=== PATIENT | female | born 1975 | race Caucasian/White ===

== ENCOUNTER 2022-12-05 10:40 | Outpatient (CLI) | payer OTHER ==
--- NOTE | 2022-12-06 15:26 | Mammography Report ---
UNILATERAL LEFT DIGITAL DIAGNOSTIC MAMMOGRAM 3D/2D: 12/05/2022 CLINICAL: Patient returns for a 6 month follow up of the left breast. Comparison is made to exams dated: 05/16/2022 mammogram, 01/27/2021 mammogram, 01/08/2021 mammogram, 09/05 mammogram - [facility], 07/20/2018 mammogram - [facility], and 05/16/2022 ult rasound - [facility]. The left breast is heterogeneously dense, which may obscure small masses (category c / 51-75% glandul ar tissue). There is an asymmetry in the left breast anterior depth central to the nipple seen on the craniocauda l view only. This is less prominent. There also is an asymmetry in the left breast middle depth lateral region seen on the craniocaudal vi ew only. This is less prominent. No other significant masses or calcifications are seen in the breast. IMPRESSION: INCOMPLETE: NEEDS ADDITIONAL IMAGING EVALUATION The asymmetry in the left breast anterior depth central to the nipple seen on the craniocaudal view o nly resembles a cyst and is indeterminate. -A targeted ultrasound is recommended and will immediately follow. The asymmetry in the left breast middle depth lateral region seen on the craniocaudal view only resem bles fibroglandular tissue and is probably benign. Based on the Tyrer Cuzick model (a risk assessment model) the patients lifetime risk is 15.5% and he r 10 year risk is 3.0%. According to the ACR, ACS, and NCCN guidelines, an annual breast MRI exam emilia ng with mammogram is recommended if the patients lifetime risk is 20% or greater. This exam was interpreted at Station ID: [id number]. NOTE: For mammograms, a report in lay terms will be sent to the patient. Approximately 15% of breast malignancies will not be visualized mammographically. In the management of a palpable breast mass, a negative mammogram must not discourage biopsy of a clinically suspicious lesion. Electronically Signed By: Kory Baum M.D. [facility] [place]/:12/05/2022 11:24:17 ACR BI-RADS Category 0: Incomplete 3340F PARENCHYMAL PATTERN: (D) - The breast(s) demonstrate(s) heterogeneously dense fibroglandular jarred boudreaux. BI-RADS CATEGORY: (0) - 0 Ultrasound [id number] Immediate follow-up LATERALITY: (B)
--- NOTE | 2022-12-06 15:26 | Ultrasound Report ---
LIMITED ULTRASOUND OF LEFT BREAST: 12/05/2022 CLINICAL: Patient returns today to evaluate a focal asymmetry in the left breast. Comparison is made to exams dated: 05/16/2022 ultrasound, 01/27/2021 ultrasound, 01/08/2021 mammogram, mammogram - [facility], 07/20/2018 mammogram, and 07/19/2018 mammogram - [facility]. Color flow and real-time ultrasound of the left breast 1-2 o'clock region were performed. Mejia scale images of the real-time examination were reviewed. There is a 1.4 cm x 1.1 cm x 0.5 cm complicated cyst in the left breast central to the nipple anterio r depth 1 cm from the nipple. This complicated cyst is hypoechoic with internal echoes. This abnorm ality is not significantly changed and correlates with mammography findings. Color flow imaging demo nstrates that there is no vascularity present. There also is a benign 0.7 cm simple cyst in the left breast at 2 o'clock posterior depth 3 cm from t he nipple. This simple cyst is anechoic. Color flow imaging demonstrates that there is no vasculari ty present. IMPRESSION: PROBABLY BENIGN The 1.4 cm complicated cyst in the left breast central to the nipple anterior depth is probably benig n. The 0.7 cm simple cyst in the left breast at 2 o'clock posterior depth is benign. A follow-up ultrasound in 6 months is recommended to demonstrate stability. Patient will be due for left and right breast mammogram at that time. Exam findings were conveyed to the patient. This exam was interpreted at Station ID: [id number]. Electronically Signed By: Kory Baum M.D. [facility] [place]/:12/05/2022 11:43:19 Ultrasound BI-RADS: 3 Probably benign BI-RADS CATEGORY: (3) - 3 Mammo and [place] [id number] 6 month follow-up LATERALITY: (B)
== END 2022-12-05 10:41 | disposition home or self-care (01) ==
LOC: DI 10:40
PROVIDERS: ATTEND Nurse Practitioner
DX: N60.12 Diffuse cystic mastopathy of left breast (principal)